=== PATIENT | male | born 1960 | race Caucasian/White ===

== ENCOUNTER 2017-11-22 13:03 | Emergency (ER) | payer OTHER ==
[~2017-11-22] VITALS: Ht 167.6 cm; Wt 63.5 kg
[2017-11-22] MEDS ORDERED: BP MED (13:15)
[2017-11-22 14:07] LABS: BASOPHILS ABSOLUTE AUTO 0.03 K/mm3 (0.00-0.23); BASOPHILS PERCENT AUTO 0 % (0-2); EOSINOPHILS ABSOLUTE AUTO 0.14 K/mm3 (0.00-0.68); EOSINOPHILS PERCENT AUTO 2 % (0-6); Hematocrit 43.3 % (37.0-53.0); Hemoglobin 14.7 g/dL (13.5-17.5); IMMATURE GRAN ABSOLUTE AUTO 0.03 K/mm3 (0.00-0.10); IMMATURE GRAN PERCENT AUTO 0 % (0-1); LYMPHOCYTES ABSOLUTE AUTO 2.42 K/mm3 (0.84-5.20); LYMPHOCYTES PERCENT AUTO 32 % (21-46); MONOCYTES ABSOLUTE AUTO 1.01 K/mm3 (0.16-1.47); MONOCYTES PERCENT AUTO 14 % (4-13); Mean Corpuscular HGB 31.7 pg (26.0-34.0); Mean Corpuscular HGB Conc 33.9 g/dL (31.5-36.5); Mean Corpuscular Volume 93 fL (80-100); Mean Platelet Volume 10.2 fL (9.1-12.4); NEUTROPHILS ABSOLUTE AUTO 3.86 K/mm3 (1.96-9.15); NEUTROPHILS PERCENT AUTO 52 % (41-73); Platelet Count 183 K/mm3 (150-400); RDW Coefficient Variation 13.4 % (11.7-14.2); RDW Standard Deviation 45.7 fL (35.1-46.3); Red Blood Cell Count 4.64 M/mm3 (4.30-5.90); White Blood Cell Count 7.49 K/mm3 (4.00-11.30)
[2017-11-22 14:08] LABS: Alanine Aminotransfer (ALT/SGP 121 U/L (12-78); Albumin, Blood 3.5 g/dL (3.4-5.0); Albumin/Globulin Ratio 0.9 (0.8-1.8); Alk Phos 76 U/L (50-136); Anion Gap 11 mmol/L (6-16); Aspartate Aminotrans (AST/SGOT 76 U/L (12-37); Bilirubin, Total 0.9 mg/dL (0.1-1.0); Blood Urea Nitrogen 29 mg/dL (8-24); Bun/Creatinine Ratio 31.2 (12.0-20.0); CO2, Blood 21 mmol/L (21-32); Calcium, Blood 8.6 mg/dL (8.5-10.1); Chloride, Blood 103 mmol/L (98-108); Creatinine, Blood 0.93 mg/dL (0.60-1.20); Ethanol (Alcohol), Blood, Med <3 mg/dL; Globulin, Blood 3.8 g/dL (2.2-4.0); Glomerular Filtration Rate >60 (60-); Glucose, Blood 100 mg/dL (70-99); Potassium, Blood 3.9 mmol/L (3.5-5.5); Sodium, Blood 135 mmol/L (136-145); Total Protein, Blood 7.3 g/dL (6.4-8.2)
[2017-11-22 16:14] LABS: Source, Urine Clean Catch
[2017-11-22 16:21] LABS: Bilirubin, Urine Neg (Neg); Blood, Urine Neg (Neg); Glucose Qualitative, Urine Neg (Neg); Ketones, Urine Neg (Neg); Leukocyte Esterase, Urine Neg (Neg); Nitrite, Urine Neg (Neg); Protein, Urine 1+ (Neg); Urobilinogen, Urine NORM (Normal)
[2017-11-22 16:36] LABS: U Amphetamine Screen DETECTED; U Barbituate Screen Not Detected; U Benzodiazapine Screen Not Detected; U Buprenorphine Screen Not Detected; U Cannabinoids Screen DETECTED; U Cocaine Screen Not Detected; U Methadone Screen Not Detected; U Methamphetamine Screen DETECTED; U Opiates Screen Not Detected; U Oxycodone Screen Not Detected; U Phencyclidine Screen Not Detected; U Propoxyphene Screen Not Detected
[2017-11-22 16:43] LABS: Appearance, Urine Clear (Clear); Color, Urine Pale Yellow (P-Yellow)
== END 2017-11-22 17:10 | disposition home or self-care (01) ==
LOC: ER 13:03
PROVIDERS: Emergency Medicine
DX: R41.82 Altered mental status, unspecified (principal); F15.10 Other stimulant abuse, uncomplicated; I10 Essential (primary) hypertension; F17.210 Nicotine dependence, cigarettes, uncomplicated
CPT/HCPCS: 36415; 70450; 80053; 82140; 85025; 93005; 93010; 96374; 99284; G0480; J2310

== ENCOUNTER 2019-03-20 13:56 | Emergency (ER) | payer OTHER ==
[~2019-03-20] VITALS: Ht 170.2 cm; Wt 65.8 kg
[~2019-03-20 13:56] MED LIST: BP MED
[2019-03-20] MEDS ORDERED: Amoxicillin500 MG PO (14:17)
[2019-03-20] MEDS ORDERED: CIPDEXSU (14:17)
[2019-03-20] MEDS ORDERED: Benazepril HCl10 MG PO (14:17)
[2019-03-20] MEDS ORDERED: Benazepril HCl20 MG PO (14:18)
[2019-03-20] MEDS ORDERED: BUPR150ER PO (14:18)
[2019-03-20] MEDS ORDERED: MELATONIN5 M1 PO (14:19)
[2019-03-20] MEDS ORDERED: Ranitidine HCl150 M1 PO (14:19)
[2019-03-20] MEDS ORDERED: PROSTATE SR SO1 EACH PO (14:19)
[2019-03-20] MEDS ORDERED: CLON.1 PO (14:20)
[2019-03-20 14:30] LABS: BASOPHILS ABSOLUTE AUTO 0.07 K/mm3 (0.00-0.23); BASOPHILS PERCENT AUTO 1 % (0-2); EOSINOPHILS ABSOLUTE AUTO 0.54 K/mm3 (0.00-0.68); EOSINOPHILS PERCENT AUTO 7 % (0-6); Hematocrit 44.9 % (37.0-53.0); Hemoglobin 15.1 g/dL (13.5-17.5); IMMATURE GRAN ABSOLUTE AUTO 0.03 K/mm3 (0.00-0.10); IMMATURE GRAN PERCENT AUTO 0 % (0-1); LYMPHOCYTES ABSOLUTE AUTO 2.44 K/mm3 (0.84-5.20); LYMPHOCYTES PERCENT AUTO 30 % (21-46); MONOCYTES ABSOLUTE AUTO 0.79 K/mm3 (0.16-1.47); MONOCYTES PERCENT AUTO 10 % (4-13); Mean Corpuscular HGB 32.3 pg (26.0-34.0); Mean Corpuscular HGB Conc 33.6 g/dL (31.5-36.5); Mean Corpuscular Volume 96 fL (80-100); Mean Platelet Volume 10.2 fL (9.1-12.4); NEUTROPHILS PERCENT AUTO 53 % (41-73); Platelet Count 245 K/mm3 (150-400); RDW Coefficient Variation 13.4 % (11.7-14.2); RDW Standard Deviation 48.1 fL (35.1-46.3); Red Blood Cell Count 4.68 M/mm3 (4.30-5.90); White Blood Cell Count 8.27 K/mm3 (4.00-11.30)
[2019-03-20 14:45] LABS: Alanine Aminotransfer (ALT/SGP 31 U/L (12-78); Albumin, Blood 3.5 g/dL (3.4-5.0); Alk Phos 63 U/L (50-136); Anion Gap 4 mmol/L (6-16); Aspartate Aminotrans (AST/SGOT 36 U/L (12-37); Bilirubin, Total 0.4 mg/dL (0.1-1.0); Blood Urea Nitrogen 13 mg/dL (8-24); Bun/Creatinine Ratio 13.4 (12.0-20.0); CO2, Blood 28 mmol/L (21-32); Calcium, Blood 7.9 mg/dL (8.5-10.1); Chloride, Blood 107 mmol/L (98-108); Creatinine, Blood 0.97 mg/dL (0.60-1.20); Globulin, Blood 3.6 g/dL (2.2-4.0); Glomerular Filtration Rate >60 (60-); Glucose, Blood 103 mg/dL (70-99); Potassium, Blood 4.2 mmol/L (3.5-5.5); Sodium, Blood 139 mmol/L (136-145); Total Protein, Blood 7.1 g/dL (6.4-8.2); Troponin I <0.015 ng/mL (0.000-0.040)
== END 2019-03-20 16:40 | disposition home or self-care (01) ==
LOC: ER 13:56
PROVIDERS: Emergency Medicine
DX: R07.89 Other chest pain (principal); Z79.899 Other long term (current) drug therapy; I10 Essential (primary) hypertension; F17.210 Nicotine dependence, cigarettes, uncomplicated
CPT/HCPCS: 71046; 80053; 84484; 85025; 93005; 93010; 99285-25

== ENCOUNTER 2021-05-30 23:03 | Observation (INO) | payer OTHER ==
[~2021-05-30] VITALS: Ht 167.6 cm; Wt 55.3 kg
[~2021-05-30 23:03] MED LIST changes: +Amoxicillin500 MG PO; +BUPR150ER PO; +Benazepril HCl10 MG PO; +Benazepril HCl20 MG PO; +CIPDEXSU; +CLON.1 PO; +MELATONIN5 M1 PO; +PROSTATE SR SO1 EACH PO; +Ranitidine HCl150 M1 PO
[2021-05-31 03:00] LABS: BASOPHILS ABSOLUTE AUTO 0.05 K/mm3 (0.00-0.23); BASOPHILS PERCENT AUTO 1 % (0-2); EOSINOPHILS ABSOLUTE AUTO 0.28 K/mm3 (0.00-0.68); EOSINOPHILS PERCENT AUTO 3 % (0-6); Hematocrit 50.4 % (37.0-53.0); Hemoglobin 16.7 g/dL (13.5-17.5); IMMATURE GRAN ABSOLUTE AUTO 0.06 K/mm3 (0.00-0.10); IMMATURE GRAN PERCENT AUTO 1 % (0-1); LYMPHOCYTES ABSOLUTE AUTO 2.49 K/mm3 (0.84-5.20); LYMPHOCYTES PERCENT AUTO 23 % (21-46); MONOCYTES ABSOLUTE AUTO 1.19 K/mm3 (0.16-1.47); MONOCYTES PERCENT AUTO 11 % (4-13); Mean Corpuscular HGB 31.4 pg (26.0-34.0); Mean Corpuscular HGB Conc 33.1 g/dL (31.5-36.5); Mean Corpuscular Volume 95 fL (80-100); Mean Platelet Volume 11.1 fL (9.1-12.4); NEUTROPHILS ABSOLUTE AUTO 6.58 K/mm3 (1.96-9.15); NEUTROPHILS PERCENT AUTO 62 % (41-73); Platelet Count 307 K/mm3 (150-400); RDW Coefficient Variation 13.3 % (11.7-14.2); RDW Standard Deviation 46.9 fL (35.1-46.3); Red Blood Cell Count 5.32 M/mm3 (4.30-5.90); White Blood Cell Count 10.65 K/mm3 (4.00-11.30)
[2021-05-31 03:10] LABS: Bun/Creatinine Ratio 16.7 (12.0-20.0); Calcium, Blood 9.6 mg/dL (8.5-10.1); Creatinine, Blood 1.32 mg/dL (0.60-1.20); Potassium, Blood 4.2 mmol/L (3.5-5.5)
[2021-05-31 04:31] LABS: SARS-Cov-2 (COVID-19) PCR, MMC NEGATIVE (NEGATIVE)
--- NOTE | 2021-05-31 06:00 | NUR ---
ICU ADMISSION: PT ARRIVES ADMIT FROM THE ED. PER PREVIOUS RN, PT WAS USING IV HEROIN W/ A FRIEND WHEN HE BECAME UNRESPONSIVE, THE FRIEND CALLED EMS. UPON THEIR ARRIVAL PT WAS HYPOXIC IN THE 70s W/ A RR OF 2. HE WAS GIVEN INTRANASAL NARCAN x2, SUPPLEMENTAL O2 W/ BVM IN THE FIELD. UPON ARRIVAL TO THE ED, PT WAS ABLE TO BE AROUSED MOMENTARILY FOR ASSESSMENTS BUT HAD DIFFICULTY REMAINING AWAKE W/ RR OF 6. HE WAS STARTED ON NARCAN GTT & TOLERATED WELL. UPON ARRIVAL TO ICU, PT IS SOMNOLENT BUT ABLE TO PARTICIPATE IN ASSESSMENTS. A&O x4. ABLE TO RECALL SOME HEALTH Hx & LIFE EVENTS. STS HE HAS BEEN A [employer] W/ NO Hx OF DEPRESSION, STS "I HAVE LEAD SUCH A GREAT LIFE, I'VE DONE A LOT OF COOL STUFF". DENIES ANY INTENTION TO THE OVERDOSE OR SI. PLAN FOR ICU OBS STATUS & PT TO RECEIVE NARCAN GTT. PT IS PLEASANT & AGREEABLE W/ PLAN OF CARE. SEE ADMIT ASSESSMENT FOR FULL ASSESSMENT. WILL CONTINUE TO MONITOR UNTIL REPORT OFF TO ONCOMING RN.
--- NOTE | 2021-05-31 06:15 | NUR ---
UPDATE: POISON CONTROL CONSULTED. WIRELESS DEVELOPMENT MANAGER DISCUSSED PT CASE W/ POISON CONTROL WHO SUGGESTS ASA, TYLENOL, ALEX, & MAG LEVEL BE DRAWN FOR MONITORING. DISCUSSED W/ HOSPITALIST & ORDERS PLACED. U-SPEC RECEIVED & SENT TO LAB.
[2021-05-31 06:24] LABS: BASOPHILS ABSOLUTE AUTO 0.04 K/mm3 (0.00-0.23); BASOPHILS PERCENT AUTO 0 % (0-2); EOSINOPHILS ABSOLUTE AUTO 0.12 K/mm3 (0.00-0.68); EOSINOPHILS PERCENT AUTO 1 % (0-6); Hematocrit 45.2 % (37.0-53.0); Hemoglobin 15.3 g/dL (13.5-17.5); IMMATURE GRAN ABSOLUTE AUTO 0.02 K/mm3 (0.00-0.10); IMMATURE GRAN PERCENT AUTO 0 % (0-1); LYMPHOCYTES ABSOLUTE AUTO 1.71 K/mm3 (0.84-5.20); LYMPHOCYTES PERCENT AUTO 16 % (21-46); MONOCYTES ABSOLUTE AUTO 1.08 K/mm3 (0.16-1.47); MONOCYTES PERCENT AUTO 10 % (4-13); Mean Corpuscular HGB 31.4 pg (26.0-34.0); Mean Corpuscular HGB Conc 33.8 g/dL (31.5-36.5); Mean Corpuscular Volume 93 fL (80-100); Mean Platelet Volume 9.4 fL (9.1-12.4); NEUTROPHILS ABSOLUTE AUTO 7.85 K/mm3 (1.96-9.15); NEUTROPHILS PERCENT AUTO 73 % (41-73); Platelet Count 345 K/mm3 (150-400); RDW Coefficient Variation 13.3 % (11.7-14.2); RDW Standard Deviation 45.4 fL (35.1-46.3); Red Blood Cell Count 4.87 M/mm3 (4.30-5.90); White Blood Cell Count 10.82 K/mm3 (4.00-11.30)
[2021-05-31 06:38] LABS: U Amphetamine Screen DETECTED; U Cannabinoids Screen DETECTED; U Methamphetamine Screen DETECTED; U Opiates Screen DETECTED
[2021-05-31 06:39] LABS: U Barbituate Screen Not Detected; U Benzodiazapine Screen Not Detected; U Buprenorphine Screen Not Detected; U Cocaine Screen Not Detected; U Methadone Screen Not Detected; U Oxycodone Screen Not Detected; U Phencyclidine Screen Not Detected; U Propoxyphene Screen Not Detected
[2021-05-31 06:46] LABS: Alanine Aminotransfer (ALT/SGP 21 U/L (12-78); Albumin, Blood 3.1 g/dL (3.4-5.0); Albumin/Globulin Ratio 0.8 (0.8-1.8); Alk Phos 91 U/L (50-136); Anion Gap 5 mmol/L (6-16); Aspartate Aminotrans (AST/SGOT 16 U/L (12-37); Bilirubin, Total 0.3 mg/dL (0.1-1.0); Blood Urea Nitrogen 21 mg/dL (8-24); Bun/Creatinine Ratio 20.6 (12.0-20.0); CO2, Blood 31 mmol/L (21-32); Calcium, Blood 9.2 mg/dL (8.5-10.1); Chloride, Blood 105 mmol/L (98-108); Creatinine, Blood 1.02 mg/dL (0.60-1.20); Glomerular Filtration Rate >60 (60-); Glucose, Blood 117 mg/dL (70-99); Magnesium, Blood 2.5 mg/dL (1.6-2.4); Potassium, Blood 3.6 mmol/L (3.5-5.5); Sodium, Blood 141 mmol/L (136-145); Total Protein, Blood 7.1 g/dL (6.4-8.2)
[2021-05-31 06:56] LABS: Ethanol (Alcohol), Blood, Med <3 mg/dL; Salicylate <1.7 mg/dL (2.8-20.0)
[2021-05-31 07:00] LABS: Acetaminophen, Random <2.0 ug/mL (10.0-30.0)
--- NOTE | 2021-05-31 09:30 | NUR ---
AM NOTE... ASSUMED CARE OF PT AT 0700, PT IS A&Ox4 BUT SLEEPY/LETHARGIC, PT WAKES EASILY TO VERBAL STIMULI BUT WILL FALL ASLEEP QUICKLY WHEN NOT TAKING OR INTERACTING. PT IS ON A NARCAN GTT RUNNING AT 1MG/HR. PT IS IN NSR IN THE 80'S, PT IS HYPERTENSIVE WITH SBPs IN THE 150'S-170'S. PT DENIES CHEST PAIN/PRESSURE. PT WAS ON 2L NC WITH O2 SATS >95% THIS WAS TAKEN OFF AND THE PT'S O2 SATS WERE 93-94%. RR IS 10-11. L/S COARSE T/O, PT IS AN EVERY DAY SMOKER. BT PRESENT AND HYPOACTIVE, ABD IS SOFT AND NONTENDER TO PALP. NO SWELLING OR EDEMA NOTED ON ASSESSMENT. PT ATTEMPTED TO EAT BREAKFAST THIS AM BUT HAD A LARGE AMOUNT OF EMISIS (APROX 300MLS) AFTER 1 BITE OF FOOD. PT WAS GIVEN IV ZOFRAN WHICH HELPED. AT 0900 DR. LEONG AT THE BEDSIDE, THE NARCAN DRIP WAS TURNED DOWN TO 0.5MG/HR PER VERBAL ORDER FROM DR. LEONG. PLAN OF CARE IS TO D/C THE PT HOME TODAY IF HE HAS IMPROVED. WILL CONTINUE TO MONITOR.
[2021-05-31] MEDS ORDERED: LISI20 PO ×2 (12:42→16:33)
[2021-05-31] MEDS ORDERED: HYDCHL25 PO (16:33)
--- NOTE | 2021-05-31 17:26 | NUR ---
PT D/C HOME... PT D/C'D HOME WITH ALL BELONGINGS. DISHCARGE INSTRUCTIONS AND EDUCATION PROVIDED TO THE PT, PT VERBALIZED HIS UNDERSTANDING. PT'S NEW MEDICATIONS WERE SENT TO THE PHARMACY OF THE PT'S [facility] ON [facility] [address]. PT'S VS STABLE UPON D/C HOME. A TAXI WAS OBTAINED FOR THE PT TO MAKE IT HOME.
== END 2021-05-31 17:00 | disposition home or self-care (01) ==
LOC: ER 23:03 → ERHOLD 05-31 04:42 → ICUE 05-31 04:42
PROVIDERS: Family Medicine; Student in an Organized Health Care Education/Training Program; ADMIT Family Medicine
DX: T40.1X1A Poisoning by heroin, accidental (unintentional), initial encounter (principal); R06.89 Other abnormalities of breathing; R09.02 Hypoxemia; N17.9 Acute kidney failure, unspecified; F19.10 Other psychoactive substance abuse, uncomplicated; I10 Essential (primary) hypertension; F17.210 Nicotine dependence, cigarettes, uncomplicated; Z20.822 Contact with and (suspected) exposure to COVID-19
CPT/HCPCS: 36415; 71045; 80048; 80053; 83735; 85025; 93005; 93010; 96372; 96376; A9270; G0378; G0480; J0360; J1650; J2310; J2405; U0004